=== PATIENT | female | born 1935 | race Caucasian/White ===

== ENCOUNTER 2016-10-03 13:11 | Emergency (ER) | payer MEDICARE, OTHER ==
[2016-10-03 13:53] VITALS: TEMP 97.5
--- NOTE | 2016-10-03 14:16 | RAD ---
EXAM DESCRIPTION: Abdomen series chest and two-view abdomen CLINICAL HISTORY: 81 y/o ,F, mid back pain with rad to the left. COMPARISON: None. IMPRESSION: Small hiatal hernia. Lung bases are clear. No free air. Mildly prominent small bowel loops left upper quadrant nonspecific pattern. Surgical clips over the pelvis. No evidence of high-grade obstruction. No definite pneumatosis. There is a rounded calcification over the right iliac wing which could be an appendicolith but is nonspecific in location. Electronically signed by: Jose Mckeon MD 10/03/2016 14:14
[2016-10-03] MEDS ORDERED: LIDOCAINE VIS-MYLANTA 30 ML UD PO ONE (14:32)
[2016-10-03] MEDS ORDERED: MAGNESIUM HYDROXIDE 30 ML UD PO ONE (16:39)
--- NOTE | 2016-10-03 16:39 | ED.PDOC ---
History of Present Illness - General Chief Complaint: Chest Pain/OR Stated Complaint: POSTERIOR CHEST PAIN, DIZZY Time Seen by Provider: 10/03/16 13:32 Source: patient Exam Limitations: no limitations - History of Present Illness Initial Comments: The patient is a 81-year-old female presenting to the emergency roomsecondary to the onset 1 hour prior of sharp pain in the center of her mid to upper back radiating around the left side of her chest anteriorly. He does not seem to be made worse with sitting up or lying flat. It does not seem to be made worse with exertion. At its worst it was a 7 out of 10 but is down to a 3 out of 10 upon arrival. The pain quickly goes away within 10 minutes of receiving a GI cocktail. There is no chest wall tenderness to palpation. The lungs are clear. The heart rate is regular. There is no anterior chest pain. There is no abdominal pain. Upon listening to the chest however there is bowel sounds. Timing/Duration: 1/2 hour Severity: moderate Improving Factors: medication Worsening Factors: nothing Associated Symptoms: diaphoresis Allergies/Adverse Reactions: Allergies NO KNOWN ALLERGY Allergy (Unverified 01/15/15 20:18) Home Medications: Ambulatory Orders Aspirin [Aspirin Adult Low Dose] 81 mg PO DAILY 01/15/15 Cephalexin [Keflex] 500 mg PO QID #28 cap 01/15/15 Gemfibrozil [Lopid] 600 mg PO BIDAC 01/15/15 Levothyroxine Sodium [Synthroid] 100 mcg PO DAILY 01/15/15 Polyethylene Glycol 3350 [Miralax] 17 gm PO PRN PRN 01/15/15 Propranolol HCl 40 mg PO DAILY 01/15/15 Verapamil HCl [Verapamil HCl ER] 240 mg PO DAILY 01/15/15 Sucralfate Tab [Carafate Tab] 1 gm PO QID #60 tab 10/03/16 Review of Systems - Review of Systems Constitutional: States: diaphoresis - briefly as reported by the patient on the pain was worst EENTM: States: no symptoms reported Respiratory: States: no symptoms reported Cardiology: States: no symptoms reported Gastrointestinal/Abdominal: States: no symptoms reported Genitourinary: States: no symptoms reported Musculoskeletal: States: back pain Skin: States: no symptoms reported Neurological: States: no symptoms reported Endocrine: States: excessive sweating All other Systems: No Change from Baseline Past Medical History (General) - Patient Medical History Hx Congestive Heart Failure: No Hx Hypertension: Yes Hx Thyroid Disease: Yes Hx Diabetes: No Hx Gastroesophageal Reflux: Yes Hx Cancer: Yes - skin and severical Surgical History: Hysterectomy, other - Vaccination History Hx Tetanus, Diphtheria Vaccination: No Hx Influenza Vaccination: Yes Hx Pneumococcal Vaccination: Yes - Social History Hx Alcohol Use: No Hx Substance Use: No Hx Depression: Yes - Female History Patient is a Female of Child Bearing Age (10 -59 yrs old): No Family Medical History - Family History Mother Living Status: Hx Cardiac Disease: Yes Physical Exam - Physical Exam General Appearance: Alert, Anxious, No apparent distress Eye Exam: bilateral normal Ears, Nose, Throat: hearing grossly normal, normal ENT inspection, normal pharynx Neck: non-tender, full range of motion, supple, normal inspection Respiratory: chest non-tender, lungs clear, normal breath sounds, no respiratory distress, no accessory muscle use Cardiovascular/Chest: normal peripheral pulses, regular rate, rhythm, no edema Peripheral Pulses: radial,right: 2+, radial,left: 2+ Gastrointestinal/Abdominal: normal bowel sounds, non tender, soft Rectal Exam: deferred Back Exam: normal inspection, no CVA tenderness, no vertebral tenderness Extremity: normal range of motion, non-tender, normal inspection, no pedal edema , normal capillary refill Neurologic: no motor/sensory deficits, alert, normal mood/affect, oriented x 3 Skin Exam: normal color Comments: Vital Signs - 24 hr 10/03/16 10/03/16 10/03/16 13:15 13:45 14:25 Temperature 97.5 F L Pulse Rate [LA] 68 63 61 Respiratory 18 20 16 Rate Blood Pressure 188/71 171/69 156/63 [LEFT BRACHIAL] O2 Sat by Pulse 20 L 97 96 Oximetry 10/03/16 10/03/16 15:25 16:15 Temperature Pulse Rate [LA] 67 62 Respiratory 20 14 Rate Blood Pressure 175/76 148/59 [LEFT BRACHIAL] O2 Sat by Pulse 98 99 Oximetry Progress - Progress Progress: 10/03/16 16:43 the patient is a 81-year-old female presenting with posterior chest or rather back pain with radiation around the left side of the chest. Cardiac enzymes are negative x2, ddimer negative as well. Pain resolved well with a GI cocktail. The patient has a known and easily visualized significant hiatal hernia on x-ray. The patient's symptoms had developed after sitting for an extended period of time. I do believe the pain was from the hiatal hernia being pressed up into the chest cavity. I'm going to have her take Carafate 1 g 4 times daily for the next 2 weeks. She needs to follow up with her primary care doctor towards the end of this week. She did receive 1 dose of milk of magnesia here for mild constipation which may be worsening the issue. She does need to keep some Maalox around in case symptoms recur. Additionally if symptoms recur she should give a trial of standing up and walking around and see if this allows the hiatal hernia to settle back down towards the abdominal cavity and reduce the pain. If this fails then she should represent to the emergency room. - Results/Orders Results/Orders: Laboratory Tests 10/03/16 13:35 WBC 7.1 RBC 4.61 Hgb 13.1 Hct 39.5 MCV 85.7 MCH 28.5 MCHC 33.2 RDW 13.3 Plt Count 266 MPV 7.8 Absolute Neuts (auto) 3.40 Absolute Lymphs (auto) 2.80 Absolute Monos (auto) 0.70 Absolute Eos (auto) 0.10 Absolute Basos (auto) 0.10 Neutrophils % 47.7 Lymphocytes % 39.4 Monocytes % 10.1 H Eosinophils % 2.0 Basophils % 0.8 PT 11.0 INR 0.970 PTT (SP) 35.8 D-Dimer, Quantitative < 200 Sodium 136 Potassium 4.0 Chloride 101 Carbon Dioxide 24 Anion Gap 15.0 BUN 22 H Creatinine 1.05 BUN/Creatinine Ratio 21.0 H Random Glucose 89 Serum Osmolality 274.8 L Calcium 9.6 Total Bilirubin 0.5 AST 29 ALT 20 Alkaline Phosphatase 67 Creatine Kinase 113 CK-MB (CK-2) 1.7 CK-MB (CK-2) % Not Reportable Troponin I < 0.02 B-Natriuretic Peptide 129.0 H Serum Total Protein 7.9 Albumin 4.6 Globulin 3.3 Albumin/Globulin Ratio 1.4 Amylase 93 chest x-ray shows normal lung liriano.there is a fairly large hiatal hernia. No widening of the mediastinum. No obvious fluid overload. No pneumothorax. Normal sinus rhythm. No acute ST segment changes consistent with acute ischemia. Telemetry monitoring shows normal sinus rhythm with intermittent PACs. Departure - Departure Clinical Impression: Hiatal hernia with GERD and esophagitis Disposition: Discharge to Home or Self Care Condition: Fair Departure Forms: ED Discharge - Pt. Copy, Patient Portal Self Enrollment Instructions: DI for Hiatal Hernia Diet: regular diet Activity: increase activity as tolerated Referrals: Aj Ornelas MD [Primary Care Provider] - 1-5 Days Prescriptions: Sucralfate Tab [Carafate Tab] 1 gm PO QID #60 tab Home Medications: Ambulatory Orders Aspirin [Aspirin Adult Low Dose] 81 mg PO DAILY 01/15/15 Cephalexin [Keflex] 500 mg PO QID #28 cap 01/15/15 Gemfibrozil [Lopid] 600 mg PO BIDAC 01/15/15 Levothyroxine Sodium [Synthroid] 100 mcg PO DAILY 01/15/15 Polyethylene Glycol 3350 [Miralax] 17 gm PO PRN PRN 01/15/15 Propranolol HCl 40 mg PO DAILY 01/15/15 Verapamil HCl [Verapamil HCl ER] 240 mg PO DAILY 01/15/15 Sucralfate Tab [Carafate Tab] 1 gm PO QID #60 tab 10/03/16 Additional Instructions: the patient is a 81-year-old female presenting with posterior chest or rather back pain with radiation around the left side of the chest. Cardiac enzymes are negative x2, ddimer negative as well. Pain resolved well with a GI cocktail. The patient has a known and easily visualized significant hiatal hernia on x-ray. The patient's symptoms had developed after sitting for an extended period of time. I do believe the pain was from the hiatal hernia being pressed up into the chest cavity. I'm going to have her take Carafate 1 g 4 times daily for the next 2 weeks. She needs to follow up with her primary care doctor towards the end of this week. She did receive 1 dose of milk of magnesia here for mild constipation which may be worsening the issue. She does need to keep some Maalox around in case symptoms recur. Additionally if symptoms recur she should give a trial of standing up and walking around and see if this allows the hiatal hernia to settle back down towards the abdominal cavity and reduce the pain. If this fails then she should represent to the emergency room.
[2016-10-03 17:19] VITALS: BP 165/73; O2SAT 95
== END 2016-10-03 17:00 | disposition home or self-care (01) ==
LOC: ER 13:11
DX: K21.0 Gastro-esophageal reflux disease with esophagitis (principal); K44.9 Diaphragmatic hernia without obstruction or gangrene; Z79.82 Long term (current) use of aspirin; Z79.899 Other long term (current) drug therapy; I10 Essential (primary) hypertension; E07.9 Disorder of thyroid, unspecified; Z85.828 Personal history of other malignant neoplasm of skin; Z85.41 Personal history of malignant neoplasm of cervix uteri

== ENCOUNTER → 2017-06-19 | Outpatient (CLI) | payer MEDICARE, OTHER ==
--- NOTE | 2017-06-21 13:14 | MAM ---
EXAM DESCRIPTION: 3D Screening BILATERAL : Digital Mammography. CLINICAL HISTORY: 82 years Female SCREENING . No complaints. No family history of breast cancer. Postmenopausal. Has taken HRT 5 or more years ago. COMPARISON: 2-D digital screening bilateral studies 06/08/2016 and 06/26/2014.. Report from prior examination also reviewed. TECHNIQUE: Bilateral CC and MLO projection full-field images, 3-D tomosynthesis digital mammographic technique. Also bilateral synthesized CC/ MLO full-field images. CAD not utilized. FINDINGS: The breast parenchymal density pattern is: Scattered areas of fibroglandular density. No skin thickening or nipple retraction bilateral solitary microcalcifications. No focal, stellate mass or density, focal asymmetry , and no suspicious microcalcifications bilaterally Stable mammograms compared to prior studies, taking into account differences in mammographic technique IMPRESSION: BI-RADS CATEGORY: 2 - BENIGN FINDINGS. FOLLOW UP: Routine digital bilateral screening, one year interval from June 2017. Written communication explaining the IMPRESSION and follow-up, will be mailed to the patient and referring health care provider. According to the [employer], yearly mammograms are recommended starting at age 40 and continuing as long as a woman is in good health. Any breast change noted on a breast self-exam should be reported promptly to the patient's healthcare provider. Breast MRI is recommended for women with an approximately 20-25% or greater lifetime risk of breast cancer, including women with a strong family history of breast or ovarian cancer and women who have been treated for Hodgkin's disease. A negative mammographic report should not delay tissue diagnosis in patients with significant clinical history or physical findings. Extremely dense breast tissue limits the sensitivity of digital mammography. Electronically signed by: Yadiel Adhikari MD 06/21/2017 1:13 PM [facility]
== END ==
LOC: MAMMO 10:49
PROVIDERS: ATTEND Family Medicine
DX: Z12.31 Encounter for screening mammogram for malignant neoplasm of breast (principal); E03.9 Hypothyroidism, unspecified; N39.0 Urinary tract infection, site not specified; I10 Essential (primary) hypertension
CPT/HCPCS: 77063; 84439; 84443; 84481; 87086; G0202

== ENCOUNTER → 2017-06-29 | Outpatient (CLI) | payer MEDICARE, OTHER ==
--- NOTE | 2017-06-30 16:37 | MRI ---
MRI right shoulder without contrast INDICATION: Shoulder pain rotator cuff tear status post injury date not specified TECHNIQUE: Noncontrast MR imaging right shoulder FINDINGS: There is medial dislocation of the long head bicep with extracapsular extension. There is disruption of the transverse ligament. There is thinning and partial tear of the subscapularis tendon. There is a full-thickness retracted tear of the supraspinatus retracted to the mid humeral head level. There is interstitial tendinopathy of the infraspinatus. Mild diffuse labral degeneration. Prominent synovitis/debris in the rotator interval. Minimal AC joint osteoarthrosis. No advanced glenohumeral arthrosis. Mild grade 1-2 marbling throughout the rotator cuff muscle bellies. Prominent subacromial and subdeltoid bursitis. IMPRESSION: Full-thickness retracted tear supraspinatus tendon Transverse ligament disruption with extracapsular long head bicep dislocation medially Labral degeneration No advanced muscle atrophy with mild grade 1-2 marbling diffusely Mild AC joint osteoarthrosis. Electronically signed by: Jose Mckeon MD 06/30/2017 4:36 PM [facility]
== END | disposition home or self-care (01) ==
LOC: MRI 14:05
PROVIDERS: ATTEND Family Medicine
DX: M25.511 Pain in right shoulder (principal)

== ENCOUNTER → 2017-11-14 | Outpatient (CLI) | payer MEDICARE, OTHER | END | disposition home or self-care (01) | LOC: GMAB 16:34 | PROVIDERS: ATTEND Family Medicine | DX: E03.9 Hypothyroidism, unspecified (principal) ==

== ENCOUNTER → 2017-11-30 | Outpatient (CLI) | payer MEDICARE, OTHER | LOC: SL 20:22 | PROVIDERS: ATTEND Family Medicine | DX: G47.33 Obstructive sleep apnea (adult) (pediatric) (principal) ==

== ENCOUNTER 2018-02-26 05:24 | Day surgery (SDC) | payer MEDICARE, OTHER ==
[2018-02-26] MEDS ORDERED: TROP 1%/CYCLOPEN 1%/PHENYL 2% DROPS ONE (05:56)
[2018-02-26] MEDS ORDERED: PROPARACAINE 0.5% OPHTH SOL 15 ML BTTL ONE (05:56)
[2018-02-26] MEDS ORDERED: MIDAZOLAM INJ 2 MG/2 ML VIAL ONE (07:14)
[2018-02-26] MEDS ORDERED: PROPARACAINE 0.5% OPHTH SOL 15 ML BTTL RIGHT_EYE ONE (07:18)
[2018-02-26] MEDS ORDERED: DEXAMETHASONE 0.1% OPHTH SOL 1 DROP RIGHT_EYE ONE ×3 (07:27→07:41)
[2018-02-26] MEDS ORDERED: TOBRAMYCIN SULF 0.3 % OPHT SOL 1 DROP RIGHT_EYE ONE ×3 (07:28→07:41)
[2018-02-26] MEDS ORDERED: BRIMONIDINE 0.2% OPHTH DROPS RIGHT_EYE ONE ×3 (07:28→07:42)
[2018-02-26] MEDS ORDERED: LIDOCAINE 1% PF 2 ML AMP INJ ONE (07:43)
== END 2018-02-26 08:32 | disposition home or self-care (01) ==
LOC: AMB 05:24
PROVIDERS: ATTEND Ophthalmology
DX: H25.11 Age-related nuclear cataract, right eye (principal); I10 Essential (primary) hypertension; K21.9 Gastro-esophageal reflux disease without esophagitis; Z87.891 Personal history of nicotine dependence; Z79.82 Long term (current) use of aspirin; Z79.899 Other long term (current) drug therapy
CPT/HCPCS: 00142; 66984; J2250

== ENCOUNTER → 2018-06-19 | Outpatient (CLI) | payer MEDICARE, OTHER | LOC: GMAE 17:22 | PROVIDERS: ATTEND Family Medicine | DX: E03.9 Hypothyroidism, unspecified (principal) ==

== ENCOUNTER 2018-10-15 05:40 | Day surgery (SDC) | payer MEDICARE, OTHER ==
[2018-10-15] MEDS ORDERED: TROP 1%/CYCLOPEN 1%/PHENYL 2% DROPS OPHTH ONE (05:41)
[2018-10-15] MEDS ORDERED: MIDAZOLAM INJ 2 MG/2 ML VIAL ONE (06:58)
[2018-10-15] MEDS ORDERED: PROPARACAINE 0.5% OPHTH SOL 15 ML BTTL LEFT_EYE ONE (07:45)
[2018-10-15] MEDS ORDERED: LIDOCAINE 1% 2 ML VIAL INJ ONE (07:53)
[2018-10-15] MEDS ORDERED: MOXIFLOXACIN HCL (OPHTH) 1 DROP DROPS LEFT_EYE ONE (08:06)
[2018-10-15] MEDS ORDERED: BRIMONIDINE 0.2% OPHTH DROPS LEFT_EYE ONE (08:06)
[2018-10-15] MEDS ORDERED: TOBRAMYCIN SULF 0.3 % OPHT SOL 1 DROP LEFT_EYE ONE (08:06)
[2018-10-15] MEDS ORDERED: DEXAMETHASONE 0.1% OPHTH SOL 1 DROP LEFT_EYE ONE (08:06)
== END 2018-10-15 08:40 | disposition home or self-care (01) ==
LOC: AMB 05:40
PROVIDERS: ATTEND Ophthalmology
DX: H25.12 Age-related nuclear cataract, left eye (principal); I10 Essential (primary) hypertension; I25.10 Atherosclerotic heart disease of native coronary artery without angina pectoris; K21.9 Gastro-esophageal reflux disease without esophagitis; E66.9 Obesity, unspecified; Z79.899 Other long term (current) drug therapy
CPT/HCPCS: 00142; 66984; J2250